=== PATIENT | male | born 1990 | race Hispanic/Latino ===

== ENCOUNTER 2017-08-29 11:00 | Emergency (ER) | payer BC ==
[~2017-08-29 11:00] MED LIST: TRAM50TA4 PO; TYL3 PO
== END 2017-08-29 11:20 | disposition home or self-care (01) ==
LOC: EDH 11:00
DX: S06.0X9A Concussion with loss of consciousness of unspecified duration, initial encounter (principal); V49.49XA Driver injured in collision with other motor vehicles in traffic accident, initial encounter; Y93.89 Activity, other specified; Y92.89 Other specified places as the place of occurrence of the external cause; Y99.8 Other external cause status

== ENCOUNTER 2018-07-21 23:13 | Emergency (ER) | payer BC | END 2018-07-22 00:21 | disposition home or self-care (01) | LOC: EDH 23:13 | DX: J06.9 Acute upper respiratory infection, unspecified (principal); H66.91 Otitis media, unspecified, right ear | CPT/HCPCS: 99281 ==

== ENCOUNTER 2023-01-29 22:06 | Emergency (ER) | payer BC, OTHER ==
[~2023-01-29] VITALS: Ht 180.3 cm; Wt 129.7 kg
[2023-01-29] MEDS ORDERED: ACETAMINOPHEN 500 MG TABLET PO ONE (23:00)
[2023-01-29] MEDS ORDERED: KETOROLAC 30MG VIAL (30MG/ML) IM ONE (23:30)
[2023-01-29] MEDS ORDERED: CYCL10TA16 PO (23:55)
[2023-01-29] MEDS ORDERED: NAPR-1180 PO (23:55)
[2023-01-30 00:01] VITALS: BP 128/84
== END 2023-01-30 00:14 | disposition home or self-care (01) ==
LOC: EDH 22:06
DX: S92.352A Displaced fracture of fifth metatarsal bone, left foot, initial encounter for closed fracture (principal); Z79.899 Other long term (current) drug therapy; Z98.890 Other specified postprocedural states; W17.2XXA Fall into hole, initial encounter; Y93.62 Activity, american flag or touch football; Y92.89 Other specified places as the place of occurrence of the external cause; Y99.8 Other external cause status
CPT/HCPCS: 99284; 73600; 73620; 96372; J1885